=== PATIENT | male | born 1985 | race Caucasian/White ===

== ENCOUNTER 2016-04-25 18:05 | Emergency (ER) | payer MEDICAID ==
[2015-11-23 16:11] VITALS: BMI 21.8
[~2016-04-25 18:05] MED LIST: CARAFATE1 G/10 ML PO; FLAGYL500 MG PO; HYDROCODONE-APA1 TAB PO; LANTUS INSULIN10 ML SC; LANTUS SOL100 UNIT/1 SC; NOVOLIN N100 U/ML SC; NOVOLOG100 U/M1; NOVOLOG100 U/M1 SC; PROTONIX40 MG PO
[2016-04-25 18:46] LABS: BASOPHILS 0.2 % (0.0-2.0); EOSINOPHILS 1.5 % (0-7); HEMATOCRIT 48.3 % (42.0-54.0); HEMOGLOBIN 16.9 g/dL (13.5-17.5); IMMATURE GRANULOCYTES 0.3 % (0-5); LYMPHOCYTES 25.7 % (15-50); MCH 31.8 pg (26.0-34.0); MEAN PLATELET VOLUME 10.5 fL (7.4-10.4); NEUTROPHILS 67.3 % (40-80); PLATELET COUNT 210 10x3/uL (130-400); RBC 5.31 10x6/uL (4.20-6.10); RDW 12.9 % (11.5-14.5); WBC 13.7 10x3/uL (4.8-10.8)
[2016-04-25 19:12] LABS: APPEARANCE CLEAR (CLEAR); BILIRUBIN NEGATIVE (NEGATIVE); COLOR YELLOW (YELLOW); GLUCOSE 1000 mg/dL (NEGATIVE); KETONE NEGATIVE (NEGATIVE); LEUKOCYTE ESTERASE NEGATIVE (NEGATIVE); NITRITE NEGATIVE (NEGATIVE); PROTEIN NEGATIVE (NEGATIVE); UROBILINOGEN NORMAL (NORMAL)
[2016-04-25 19:20] LABS: ALBUMIN 3.8 g/dL (3.4-5.0); ALKALINE PHOSPHATASE 92 U/L (46-116); ALT (SGPT) 35 U/L (10-68); BILIRUBIN - TOTAL 1.41 mg/dL (0.2-1.3); CALC OSMOLALITY 290 mosm/kg (275-300); CALCIUM 9.9 mg/dL (8.5-10.1); CARBON DIOXIDE 27.7 mmol/L (21.0-32.0); CHLORIDE - SERUM 102 mmol/L (98-107); CREATININE - SERUM 0.9 mg/dL (0.6-1.3); POTASSIUM - SERUM 3.5 mmol/L (3.5-5.1); PROTEIN - SERUM 7.2 g/dL (6.4-8.2); SODIUM 140 mmol/L (136-145); UREA NITROGEN 16 mg/dL (7-18); eGFR NON AFRICAN AMERICAN > 90 mL/min (90-120)
[2016-04-25 19:21] LABS: GLUCOSE 290 mg/dL (74-106)
[2016-04-25 19:22] LABS: AMYLASE - SERUM 41 U/L (25-115); LIPASE 103 U/L (73-393)
== END 2016-04-25 22:25 | disposition home or self-care (01) ==
LOC: D.ER 18:05
PROVIDERS: Emergency Medicine
DX: R10.9 Unspecified abdominal pain (principal); E10.65 Type 1 diabetes mellitus with hyperglycemia; Z79.4 Long term (current) use of insulin; R11.10 Vomiting, unspecified; J45.909 Unspecified asthma, uncomplicated; K22.70 Barrett's esophagus without dysplasia; F17.200 Nicotine dependence, unspecified, uncomplicated

== ENCOUNTER 2016-06-14 16:18 | Emergency (ER) | payer MEDICAID ==
[2015-11-23 16:11] VITALS: BMI 21.8
[2016-06-14 16:54] LABS: BASOPHILS 0.2 % (0.0-2.0); EOSINOPHILS 1.8 % (0-7); HEMATOCRIT 51.2 % (42.0-54.0); IMMATURE GRANULOCYTES 0.4 % (0-5); MCH 31.8 pg (26.0-34.0); MCHC 35.2 g/dL (31.0-37.0); MCV 90.5 fL (80.0-100.0); MEAN PLATELET VOLUME 10.5 fL (7.4-10.4); MONOCYTES 5.9 % (2-11); NEUTROPHILS 82.7 % (40-80); PLATELET COUNT 178 10x3/uL (130-400); RBC 5.66 10x6/uL (4.20-6.10); RDW 12.4 % (11.5-14.5); WBC 10.9 10x3/uL (4.8-10.8)
[2016-06-14 17:42] LABS: ALKALINE PHOSPHATASE 74 U/L (46-116); ALT (SGPT) 34 U/L (10-68); AMYLASE - SERUM 40 U/L (25-115); BILIRUBIN - TOTAL 1.63 mg/dL (0.2-1.3); CALC OSMOLALITY 283 mosm/kg (275-300); CALCIUM 9.3 mg/dL (8.5-10.1); CARBON DIOXIDE 26.3 mmol/L (21.0-32.0); CHLORIDE - SERUM 100 mmol/L (98-107); CREATININE - SERUM 0.7 mg/dL (0.6-1.3); GLUCOSE 298 mg/dL (74-106); LIPASE 83 U/L (73-393); POTASSIUM - SERUM 4.4 mmol/L (3.5-5.1); PROTEIN - SERUM 7.2 g/dL (6.4-8.2); SODIUM 136 mmol/L (136-145); UREA NITROGEN 16 mg/dL (7-18); eGFR NON AFRICAN AMERICAN > 90 mL/min (90-120)
[2016-06-14 17:59] LABS: APPEARANCE CLEAR (CLEAR); BILIRUBIN NEGATIVE (NEGATIVE); COLOR YELLOW (YELLOW); GLUCOSE 1000 mg/dL (NEGATIVE); KETONE MODERATE mg/dL (NEGATIVE); LEUKOCYTE ESTERASE NEGATIVE (NEGATIVE); NITRITE NEGATIVE (NEGATIVE); PROTEIN NEGATIVE (NEGATIVE); SPECIFIC GRAVITY 1.015 (1.005-1.020); UROBILINOGEN NORMAL (NORMAL)
[2016-06-14 18:04] LABS: UDS - AMPHET NEGATIVE QUAL (NEGATIVE); UDS - BARB NEGATIVE QUAL (NEGATIVE); UDS - BENZO NEGATIVE QUAL (NEGATIVE); UDS - COCAINE NEGATIVE QUAL (NEGATIVE); UDS - METH NEGATIVE QUAL (NEGATIVE); UDS - OPIATE POSITIVE QUAL (NEGATIVE); UDS - PCP NEGATIVE QUAL (NEGATIVE); UDS - THC POSITIVE QUAL (NEGATIVE)
== END 2016-06-14 20:18 | disposition home or self-care (01) ==
LOC: D.ER 16:18
PROVIDERS: Family Medicine
DX: R10.9 Unspecified abdominal pain (principal); J45.909 Unspecified asthma, uncomplicated; K22.719 Barrett's esophagus with dysplasia, unspecified; E11.9 Type 2 diabetes mellitus without complications; Z79.4 Long term (current) use of insulin

== ENCOUNTER 2016-06-23 14:18 | Emergency (ER) | payer MEDICAID ==
[2015-11-23 16:11] VITALS: BMI 21.8
[2016-06-23 15:46] LABS: BASOPHILS 0.2 % (0.0-2.0); EOSINOPHILS 1.9 % (0-7); HEMATOCRIT 48.5 % (42.0-54.0); IMMATURE GRANULOCYTES 0.2 % (0-5); MCH 31.8 pg (26.0-34.0); MCHC 35.1 g/dL (31.0-37.0); MCV 90.7 fL (80.0-100.0); MEAN PLATELET VOLUME 10.2 fL (7.4-10.4); NEUTROPHILS 59.7 % (40-80); RBC 5.35 10x6/uL (4.20-6.10); RDW 12.5 % (11.5-14.5); WBC 11.1 10x3/uL (4.8-10.8)
[2016-06-23 15:49] LABS: PLATELET COUNT 221 10x3/uL (130-400)
[2016-06-23 16:01] LABS: ALBUMIN 3.6 g/dL (3.4-5.0); ALKALINE PHOSPHATASE 75 U/L (46-116); ALT (SGPT) 46 U/L (10-68); BILIRUBIN - TOTAL 1.33 mg/dL (0.2-1.3); CALC OSMOLALITY 288 mosm/kg (275-300); CARBON DIOXIDE 28.9 mmol/L (21.0-32.0); CHLORIDE - SERUM 103 mmol/L (98-107); CREATININE - SERUM 0.7 mg/dL (0.6-1.3); POTASSIUM - SERUM 3.8 mmol/L (3.5-5.1); PROTEIN - SERUM 6.6 g/dL (6.4-8.2); SODIUM 140 mmol/L (136-145); UREA NITROGEN 20 mg/dL (7-18); eGFR NON AFRICAN AMERICAN > 90 mL/min (90-120)
[2016-06-23 16:16] LABS: GLUCOSE 230 mg/dL (74-106)
== END 2016-06-23 18:53 | disposition left against medical advice (07) ==
LOC: D.ER 14:18
PROVIDERS: Emergency Medicine
DX: R51 Headache (principal)

== ENCOUNTER 2016-07-09 10:28 | Emergency (ER) | payer MEDICAID ==
[2015-11-23 16:11] VITALS: BMI 21.8
[2016-07-09 11:10] LABS: BASOPHILS 0.1 % (0.0-2.0); EOSINOPHILS 1.8 % (0-7); HEMATOCRIT 49.5 % (42.0-54.0); HEMOGLOBIN 17.5 g/dL (13.5-17.5); IMMATURE GRANULOCYTES 0.1 % (0-5); LYMPHOCYTES 32.5 % (15-50); MCH 31.9 pg (26.0-34.0); MCHC 35.4 g/dL (31.0-37.0); MCV 90.2 fL (80.0-100.0); MEAN PLATELET VOLUME 10.9 fL (7.4-10.4); MONOCYTES 7.4 % (2-11); NEUTROPHILS 58.1 % (40-80); PLATELET COUNT 202 10x3/uL (130-400); RBC 5.49 10x6/uL (4.20-6.10); RDW 12.5 % (11.5-14.5); WBC 7.7 10x3/uL (4.8-10.8)
[2016-07-09 11:36] LABS: ALBUMIN 4.2 g/dL (3.4-5.0); ALKALINE PHOSPHATASE 80 U/L (46-116); ALT (SGPT) 33 U/L (10-68); BILIRUBIN - TOTAL 2.03 mg/dL (0.2-1.3); CALC OSMOLALITY 285 mosm/kg (275-300); CALCIUM 9.2 mg/dL (8.5-10.1); CHLORIDE - SERUM 99 mmol/L (98-107); CREATINE KINASE 185 UL (21-232); CREATININE - SERUM 0.8 mg/dL (0.6-1.3); GLUCOSE 349 mg/dL (74-106); POTASSIUM - SERUM 4.1 mmol/L (3.5-5.1); PROTEIN - SERUM 6.9 g/dL (6.4-8.2); SODIUM 136 mmol/L (136-145); UREA NITROGEN 13 mg/dL (7-18); eGFR NON AFRICAN AMERICAN > 90 mL/min (90-120)
[2016-07-09 12:38] LABS: UDS - AMPHET NEGATIVE QUAL (NEGATIVE); UDS - BARB NEGATIVE QUAL (NEGATIVE); UDS - BENZO NEGATIVE QUAL (NEGATIVE); UDS - COCAINE NEGATIVE QUAL (NEGATIVE); UDS - METH NEGATIVE QUAL (NEGATIVE); UDS - OPIATE NEGATIVE QUAL (NEGATIVE); UDS - PCP NEGATIVE QUAL (NEGATIVE); UDS - THC NEGATIVE QUAL (NEGATIVE)
[2016-07-09 12:46] LABS: APPEARANCE CLEAR (CLEAR); COLOR YELLOW (YELLOW); SPECIFIC GRAVITY 1.015 (1.005-1.020)
[2016-07-09 12:52] LABS: BILIRUBIN NEGATIVE (NEGATIVE); GLUCOSE 1000 mg/dL (NEGATIVE); KETONE LARGE mg/dL (NEGATIVE); LEUKOCYTE ESTERASE TRACE (NEGATIVE); NITRITE NEGATIVE (NEGATIVE); PROTEIN NEGATIVE (NEGATIVE); UROBILINOGEN NORMAL (NORMAL)
[2016-07-09 12:53] LABS: WHITE CELLS - URINE 0-5 /hpf (0-5)
[2016-07-09 12:55] LABS: RED CELLS - URINE OCC /hpf (0-5)
[2016-07-09 12:56] LABS: BACTERIA FEW /hpf (NONE SEEN); EPITHELIAL CELLS RARE /hpf (0-5)
== END 2016-07-09 12:47 | disposition home or self-care (01) ==
LOC: D.ER 10:28
PROVIDERS: Emergency Medicine
DX: R06.02 Shortness of breath (principal); J45.909 Unspecified asthma, uncomplicated; E10.9 Type 1 diabetes mellitus without complications; Z79.4 Long term (current) use of insulin; F17.200 Nicotine dependence, unspecified, uncomplicated

== ENCOUNTER 2016-07-16 08:29 | Emergency (ER) | payer MEDICAID ==
[2015-11-23 16:11] VITALS: BMI 21.8
[2016-07-16 09:24] LABS: BASOPHILS 0.2 % (0.0-2.0); HEMATOCRIT 33.4 % (42.0-54.0); HEMOGLOBIN 10.6 g/dL (13.5-17.5); LYMPHOCYTES 31.2 % (15-50); MCHC 31.7 g/dL (31.0-37.0); MCV 75.7 fL (80.0-100.0); MEAN PLATELET VOLUME 12.1 fL (7.4-10.4); MONOCYTES 7.1 % (2-11); NEUTROPHILS 60.5 % (40-80); PLATELET COUNT 277 10x3/uL (130-400); RBC 4.41 10x6/uL (4.20-6.10); RDW 16.1 % (11.5-14.5); WBC 5.8 10x3/uL (4.8-10.8)
[2016-07-16 09:32] LABS: AMYLASE - SERUM 65 U/L (25-115); LIPASE 139 U/L (73-393)
[2016-07-16 09:58] LABS: ALBUMIN 4.2 g/dL (3.4-5.0); ALKALINE PHOSPHATASE 75 U/L (46-116); ALT (SGPT) 17 U/L (10-68); BILIRUBIN - TOTAL 0.61 mg/dL (0.2-1.3); CALCIUM 9.2 mg/dL (8.5-10.1); CHLORIDE - SERUM 104 mmol/L (98-107); CREATININE - SERUM 0.9 mg/dL (0.6-1.3); POTASSIUM - SERUM 4.3 mmol/L (3.5-5.1); SODIUM 139 mmol/L (136-145); UREA NITROGEN 13 mg/dL (7-18); eGFR NON AFRICAN AMERICAN > 90 mL/min (90-120)
[2016-07-16 10:02] LABS: CREATINE KINASE 62 UL (21-232); MAGNESIUM - SERUM 2.1 mg/dL (1.8-2.4)
[2016-07-16 10:03] LABS: CALC OSMOLALITY 276 mosm/kg (275-300); GLUCOSE 86 mg/dL (74-106); TROPONIN-I < 0.017 ng/mL (0.000-0.060)
== END 2016-07-16 12:14 | disposition home or self-care (01) ==
LOC: D.ER 08:29
PROVIDERS: Emergency Medicine
DX: K20.9 Esophagitis, unspecified (principal); D64.9 Anemia, unspecified; J45.909 Unspecified asthma, uncomplicated; E10.9 Type 1 diabetes mellitus without complications; Z79.4 Long term (current) use of insulin; F17.200 Nicotine dependence, unspecified, uncomplicated

== ENCOUNTER 2016-07-31 23:11 | Emergency (ER) | payer MEDICAID ==
[2015-11-23 16:11] VITALS: BMI 21.8
[2016-07-31 23:35] LABS: APPEARANCE CLEAR (CLEAR); BILIRUBIN NEGATIVE (NEGATIVE); COLOR YELLOW (YELLOW); GLUCOSE 500 mg/dL (NEGATIVE); KETONE SMALL mg/dL (NEGATIVE); LEUKOCYTE ESTERASE NEGATIVE (NEGATIVE); NITRITE NEGATIVE (NEGATIVE); PROTEIN NEGATIVE (NEGATIVE); SPECIFIC GRAVITY 1.015 (1.005-1.020); UROBILINOGEN NORMAL (NORMAL)
[2016-07-31 23:52] LABS: BASOPHILS 0.2 % (0-2); EOSINOPHILS 1.7 % (0-7); HEMATOCRIT 45.9 % (42.0-54.0); HEMOGLOBIN 16.3 g/dL (13.5-17.5); IMMATURE GRANULOCYTES 0.5 % (0-5); LYMPHOCYTES 42.5 % (15-50); MCH 31.8 pg (26.0-34.0); MCHC 35.5 g/dL (31.0-37.0); MCV 89.6 fL (80.0-100.0); MEAN PLATELET VOLUME 10.3 fL (7.4-10.4); MONOCYTES 7.8 % (2-11); NEUTROPHILS 47.3 % (40-80); PLATELET COUNT 225 10x3/uL (130-400); RBC 5.12 10x6/uL (4.20-6.10); RDW 12.5 % (11.5-14.5); WBC 8.6 10x3/uL (4.8-10.8)
[2016-08-01 00:06] LABS: ALKALINE PHOSPHATASE 74 U/L (46-116); ALT (SGPT) 33 U/L (10-68); AMYLASE - SERUM 32 U/L (25-115); BILIRUBIN - TOTAL 2.12 mg/dL (0.2-1.3); CALC OSMOLALITY 283 mosm/kg (275-300); CALCIUM 9.5 mg/dL (8.5-10.1); CARBON DIOXIDE 28.7 mmol/L (21.0-32.0); CHLORIDE - SERUM 96 mmol/L (98-107); GLUCOSE 315 mg/dL (74-106); LIPASE 51 U/L (73-393); POTASSIUM - SERUM 3.8 mmol/L (3.5-5.1); PROTEIN - SERUM 7.2 g/dL (6.4-8.2); SODIUM 135 mmol/L (136-145); UREA NITROGEN 18 mg/dL (7-18); eGFR NON AFRICAN AMERICAN > 90 mL/min (90-120)
== END 2016-08-01 01:20 | disposition home or self-care (01) ==
LOC: D.ER 23:11
PROVIDERS: Family Medicine
DX: R11.10 Vomiting, unspecified (principal); J45.909 Unspecified asthma, uncomplicated; E10.9 Type 1 diabetes mellitus without complications; Z79.4 Long term (current) use of insulin

== ENCOUNTER 2016-08-04 00:42 | Emergency (ER) | payer MEDICAID ==
[2015-11-23 16:11] VITALS: BMI 21.8
[2016-08-04 01:33] LABS: HEMATOCRIT 50.8 % (42.0-54.0); HEMOGLOBIN 17.4 g/dL (13.5-17.5); LYMPHOCYTES 27.3 % (15-50); MCH 31.2 pg (26.0-34.0); MCHC 34.3 g/dL (31.0-37.0); MEAN PLATELET VOLUME 10.1 fL (7.4-10.4); NEUTROPHILS 66.9 % (40-80); PLATELET COUNT 193 10x3/uL (130-400); RBC 5.58 10x6/uL (4.20-6.10); RDW 12.6 % (11.5-14.5); WBC 8.2 10x3/uL (4.8-10.8)
[2016-08-04 01:38] LABS: KETONE - SERUM SMALL mg/dL (NEGATIVE)
[2016-08-04 01:40] LABS: APPEARANCE CLEAR (CLEAR); BILIRUBIN NEGATIVE (NEGATIVE); COLOR STRAW (YELLOW); GLUCOSE 1000 mg/dL (NEGATIVE); KETONE LARGE mg/dL (NEGATIVE); LEUKOCYTE ESTERASE NEGATIVE (NEGATIVE); NITRITE NEGATIVE (NEGATIVE); PROTEIN NEGATIVE (NEGATIVE); SPECIFIC GRAVITY 1.015 (1.005-1.020); UROBILINOGEN NORMAL (NORMAL)
[2016-08-04 01:46] LABS: ALBUMIN 4.3 g/dL (3.4-5.0); ALKALINE PHOSPHATASE 167 U/L (46-116); ALT (SGPT) 32 U/L (10-68); AMYLASE - SERUM 26 U/L (25-115); BILIRUBIN - TOTAL 2.43 mg/dL (0.2-1.3); CALCIUM 10.3 mg/dL (8.5-10.1); CARBON DIOXIDE 17.2 mmol/L (21.0-32.0); CHLORIDE - SERUM 89 mmol/L (98-107); CREATININE - SERUM 1.3 mg/dL (0.6-1.3); LIPASE 73 U/L (73-393); POTASSIUM - SERUM 5.2 mmol/L (3.5-5.1); PROTEIN - SERUM 7.6 g/dL (6.4-8.2); SODIUM 127 mmol/L (136-145); UREA NITROGEN 24 mg/dL (7-18); eGFR NON AFRICAN AMERICAN 70 mL/min (90-120)
[2016-08-04 01:57] LABS: CALC OSMOLALITY 307 mosm/kg (275-300); GLUCOSE 986 mg/dL (74-106)
== END 2016-08-04 07:58 | disposition home or self-care (01) ==
LOC: D.ER 00:42
PROVIDERS: Family Medicine
DX: E11.65 Type 2 diabetes mellitus with hyperglycemia (principal); Z79.4 Long term (current) use of insulin; R11.10 Vomiting, unspecified; J45.909 Unspecified asthma, uncomplicated

== ENCOUNTER 2016-10-26 15:37 | Emergency (ER) | payer MEDICAID ==
[2015-11-23 16:11] VITALS: BMI 21.8
== END 2016-10-26 17:15 | disposition home or self-care (01) ==
LOC: D.ER 15:37
DX: M79.1 Myalgia (principal); J45.909 Unspecified asthma, uncomplicated; E10.9 Type 1 diabetes mellitus without complications; Z79.4 Long term (current) use of insulin

== ENCOUNTER 2018-07-31 04:56 | Inpatient (IN) | payer MEDICAID, BC ==
[2018-07-31] VITALS (7 sets, daily range): BP systolic 99–125; BP diastolic 44–74; BMI 22.5
[~2018-07-31] VITALS: Ht 188 cm; Wt 76.7 kg
[2018-07-31] MEDS ORDERED: CELEBREX 100 M100 MG PO (05:04)
[2018-07-31 05:46] LABS: BASOPHILS 0.3 % (0-2); EOSINOPHILS 3.6 % (0-7); HEMATOCRIT 46.9 % (42.0-54.0); HEMOGLOBIN 16.9 g/dL (13.5-17.5); IMMATURE GRANULOCYTES 0.5 % (0-5); LYMPHOCYTES 39.4 % (15-50); MCH 31.7 pg (26.0-34.0); MEAN PLATELET VOLUME 10.4 fL (7.4-10.4); MONOCYTES 6.6 % (2-11); NEUTROPHILS 49.6 % (40-80); RBC 5.33 10x6/uL (4.20-6.10); RDW 12.6 % (11.5-14.5); WBC 9.6 10x3/uL (4.8-10.8)
[2018-07-31 05:48] LABS: ALBUMIN 3.8 g/dL (3.4-5.0); ALKALINE PHOSPHATASE 104 U/L (46-116); ALT (SGPT) 33 U/L (10-68); CALC OSMOLALITY 285 mosm/kg (275-300); CALCIUM 9.9 mg/dL (8.5-10.1); CARBON DIOXIDE 25.2 mmol/L (21.0-32.0); CHLORIDE - SERUM 100 mmol/L (98-107); CREATININE - SERUM 0.8 mg/dL (0.6-1.3); LIPASE 84 U/L (73-393); PROTEIN - SERUM 7.8 g/dL (6.4-8.2); SODIUM 137 mmol/L (136-145); UREA NITROGEN 16 mg/dL (7-18); eGFR NON AFRICAN AMERICAN > 90 mL/min (90-120)
[2018-07-31 05:50] LABS: PLATELET COUNT 247 10x3/uL (130-400)
[2018-07-31 05:51] LABS: GLUCOSE 290 mg/dL (74-106)
--- NOTE | 2018-07-31 06:18 | NUR ---
PT URINE SPECIMEN SENT TO LAB. PT DENIES RELIEF FROM TORADOL. EDP NOTIFIED.
[2018-07-31 06:39] LABS: APPEARANCE CLEAR (CLEAR); BILIRUBIN NEGATIVE (NEGATIVE); COLOR YELLOW (YELLOW); GLUCOSE 500 mg/dL (NEGATIVE); KETONE NEGATIVE (NEGATIVE); NITRITE NEGATIVE (NEGATIVE); PROTEIN NEGATIVE (NEGATIVE); SPECIFIC GRAVITY 1.015 (1.005-1.020); UROBILINOGEN NORMAL (NORMAL)
--- NOTE | 2018-07-31 06:40 | NUR ---
PT RESTING ON BED. BEDSIDE COMMODE AT SIDE. PT FAMILY IN WAITING ROOM.
--- NOTE | 2018-07-31 07:10 | NUR ---
STOOL SAMPLE COLLECTED AND SENT TO LAB.
--- NOTE | 2018-07-31 11:41 | NUR ---
ARRIVE TO ROOM VIA WHEELCHAIR ACCOMPANIED BY ER STAFF. AMBULATES FROM WHEELCHAIR TO BED WITHOUT DIFFICULTY. LEVAQUIN ANTIBIOTIC INFUSING ORDERED. UP AD ROGE. REFUSE SCDs. CONTINUE ADMISSION PROCESS. CONTINUE PLAN OF CARE AND SAFETY PRECAUTIONS.
--- NOTE | 2018-07-31 11:54 | MORECARE ---
CASE MANAGEMENT DISCHARGE SUMMARY PATIENT: GAVIOTA COFFEY UNIT: [id number] ADM DATE: 07/31/18 AGE: 32 : 89 SEX: M ROOM/BED: D.1213 AUTHOR: ABDULLAHI POWELL PHYSICIAN: REFERRING PHYSICIAN: STEPHANE LOZANO MD DATE OF SERVICE: 07/31/18 Discharge Plan Patient Name: GAVIOTA COFFEY Facility: [facility]:[place] : 1985 Planned Disposition: Home Anticipated Discharge Date: 08/02/18 Discharge Date: Expected LOS: 2 Initial Reviewer: [email or web address] Initial Review Date: 07/31/2018 Generated: 07/31/18 12:54 pm DCP- Discharge Planning Updated by [email or web address]: Chanda Rahman on 07/31/18 10:[address] Patient Name: GAVIOTA COFFEY Admission Status: ER Accout number: [id number] Admission Date: 07-31-2018 : 1985 Admission Diagnosis: Attending: STEPHANE SIMON Current LOS: 1 Anticipated DC Date: 08-02-2018 Planned Disposition: Home Primary Insurance: MEDICAID [place] Discharge Planning Comments: CM met with patient to complete initial dc planning assessment. CM educated patient on the CM role and verbal consent given by patient to complete assessment. CM verified patient's address, phone number, and emergency contact phone numbers. Patient lives at home with his mother and his son. He reports he recently moved here and moved in with his mother. At discharge patient plans to return to his mothers home and feels this is a safe discharge. CM discussed availability of home health, rehab services, and medical equipment. Patient denied known discharge needs at this time. Patient reports his mother will transport him home at time of discharge. CM will continue to follow and will assist as needed with dc plans/needs. Airdrop Systems Technician: Chanda Rahman RN, [facility] DCPIA - Discharge Planning Initial Assessment Updated by [email or web address]: Chanda Rahman on 07/31/18 11:34 am * Is the patient Alert and Oriented? Yes * PCP Dr. Lazo - hasn't had first appointment yet nor appointment at this time. * Pharmacy [facility] in [place] * Preadmission Environment Home with Family * ADLs Independent * Equipment Glucometer * List name and contact numbers for known caregivers / representatives who currently or will assist patient after discharge: Colby Pierre - mother/transportation at dc - [phone] [place] - [phone] * Verbal permission to speak to the caregivers and representatives has been obtained from the patient. Yes * Community resources currently utilized None * Additional services required to return to the preadmission environment? No * Can the patient safely return to the preadmission environment? Yes * Has this patient been hospitalized within the prior 30 days at any hospital? No Patient Name: GAVIOTA COFFEY Page 77777 at 1154 All edits/amendments must be made on the electronic document DICTATION DATE: 07/31/181152 SCOUT: INDIA 07/31/181152 RPT#: [id number] [place] DATE: STATUS: ADM IN [facility] [address] [place] [address] END OF REPORT
[2018-07-31] MEDS ORDERED: BASAGLAR K100 UNIT/1 SC (12:13)
--- NOTE | 2018-07-31 20:00 | NUR ---
LYING IN BED WITH S.O. ALERT AND ORIENTED X4. RESP EVEN AND NONLABORED. BBS CTA. ABD FLAT, TENDER. REPORTS ABD CRAMPING AND BILAT FLANK PAIN 7. DENIES NAUSEA. BS PRESENT X4 QUADS. AMBULATORY. SALINE LOCK NOTED TO LT FOREARM. SR ELEVATED X2. CL IN REACH.
--- NOTE | 2018-07-31 21:00 | NUR ---
MEDICATED WITH DILAUDID 0.5MG AND ZOFRAN ORDERED. C/O ABD CRAMPING AND BILAT FLANK PAIN. S.O AT BEDSIDE. SR ELEVATED X2. CL IN REACH.
--- NOTE | 2018-07-31 23:35 | NUR ---
REQUESTING DILAUDID FOR PAIN. MEDICATED WITH DILAUDID 1MG FOR C/O ABD CRAMPING AND BILAT FLANK PAIN. SR ELEVATED X2. CL IN REACH.
[2018-08-01 01:43] VITALS: BP 113/65
--- NOTE | 2018-08-01 04:10 | NUR ---
HAS RESTED WELL SINCE MIDNIGHT. RESP EVEN AND NONLABORED. SR ELEVATED X2. CL IN REACH.
[2018-08-01 05:15] VITALS: BP 108/66
[2018-08-01 06:57] LABS: BASOPHILS 0.2 % (0-2); EOSINOPHILS 3.8 % (0-7); HEMATOCRIT 42.5 % (42.0-54.0); HEMOGLOBIN 14.7 g/dL (13.5-17.5); IMMATURE GRANULOCYTES 0.2 % (0-5); LYMPHOCYTES 36.3 % (15-50); MCH 30.9 pg (26.0-34.0); MCHC 34.6 g/dL (31.0-37.0); MCV 89.5 fL (80.0-100.0); MEAN PLATELET VOLUME 10.1 fL (7.4-10.4); MONOCYTES 6.5 % (2-11); PLATELET COUNT 209 10x3/uL (130-400); RBC 4.75 10x6/uL (4.20-6.10); RDW 12.6 % (11.5-14.5); WBC 8.3 10x3/uL (4.8-10.8)
[2018-08-01 07:40] LABS: CALC OSMOLALITY 289 mosm/kg (275-300); CALCIUM 8.8 mg/dL (8.5-10.1); CARBON DIOXIDE 28.2 mmol/L (21.0-32.0); CHLORIDE - SERUM 105 mmol/L (98-107); CREATININE - SERUM 0.8 mg/dL (0.6-1.3); GLUCOSE 256 mg/dL (74-106); SODIUM 139 mmol/L (136-145); UREA NITROGEN 20 mg/dL (7-18); eGFR NON AFRICAN AMERICAN > 90 mL/min (90-120)
[2018-08-01 08:31] VITALS: BP 121/77
[2018-08-01 10:07] VITALS: Ht 188 cm; Wt 76.7 kg
[2018-08-01 12:30] VITALS: BP 117/72
--- NOTE | 2018-08-01 13:32 | NUR ---
IV POLE BEEPING. ENTER ROOM, PATIENT MISSING. ADMINISTERED PAIN MEDICATION 1230. IV ANTIBIOTIC INFUSING UNHOOKED BY PATIENT LEFT ON BED. LABORER TIN CAN REPORTS SEEING PATIENT IN GIFT SHOP. CALL TO GIFT SHOP, SHIFT SHOP ATTENDANT REPORTS PATIENT SEEN WALKING OUT FRONT DOOR. PAGE MISTY HUERTA TO NOTIFY.
[2018-08-01 16:15] VITALS: BP 122/73
[2018-08-01 20:00] VITALS: BP 114/65
--- NOTE | 2018-08-01 20:35 | NUR ---
HAS BEEN AMBULATING IN HOSPITAL WITH GIRLFRIEND. RETURNS TO ROOM AND ASKS FOR PAIN AND NAUSEA MED. MEDICATED WITH DILAUDID AND ZOFRAN ORDERED FOR ABD/BACK PAIN AND NAUSEA. RESP EVEN AND NONLABORED. BBS CTA. ABD SOFT, TENDER. BS PRESENT X4 QUADS. SALINE LOCK NOTED TO LT FOREARM IS PATENT. SR ELEVATED X2. CL IN REACH.
[2018-08-02] VITALS: BP 109/60
--- NOTE | 2018-08-02 00:05 | NUR ---
AMBULATING AROUND HOSPITAL WITH GIRLFRIEND. NO DISTRESS.
--- NOTE | 2018-08-02 03:00 | NUR ---
MEDICATED WITH DILAUDID AND ZOFRAN FOR C/O PAIN AND NAUSEA. CL IN REACH.
--- NOTE | 2018-08-02 04:14 | NUR ---
RESTING WITH EYES CLOSED. NO DISTRESS. RESP EVEN AND NONLABORED. CL IN REACH.
[2018-08-02 04:15] VITALS: BP 102/59
[2018-08-02 07:48] LABS: BASOPHILS 0.1 % (0-2); EOSINOPHILS 4.4 % (0-7); HEMATOCRIT 43.7 % (42.0-54.0); HEMOGLOBIN 15.1 g/dL (13.5-17.5); IMMATURE GRANULOCYTES 0.2 % (0-5); LYMPHOCYTES 35.6 % (15-50); MCH 31.1 pg (26.0-34.0); MCHC 34.6 g/dL (31.0-37.0); MCV 89.9 fL (80.0-100.0); MEAN PLATELET VOLUME 10.2 fL (7.4-10.4); MONOCYTES 6.2 % (2-11); NEUTROPHILS 53.5 % (40-80); PLATELET COUNT 206 10x3/uL (130-400); RBC 4.86 10x6/uL (4.20-6.10); RDW 12.8 % (11.5-14.5); WBC 9.5 10x3/uL (4.8-10.8)
[2018-08-02 08:15] LABS: ALBUMIN 3.3 g/dL (3.4-5.0); ALKALINE PHOSPHATASE 66 U/L (46-116); ALT (SGPT) 31 U/L (10-68); BILIRUBIN - TOTAL 1.02 mg/dL (0.2-1.3); CALC OSMOLALITY 287 mosm/kg (275-300); CALCIUM 9.1 mg/dL (8.5-10.1); CARBON DIOXIDE 27.9 mmol/L (21.0-32.0); CHLORIDE - SERUM 101 mmol/L (98-107); CREATININE - SERUM 0.9 mg/dL (0.6-1.3); MAGNESIUM - SERUM 1.8 mg/dL (1.8-2.4); POTASSIUM - SERUM 4.6 mmol/L (3.5-5.1); PROTEIN - SERUM 6.6 g/dL (6.4-8.2); SODIUM 136 mmol/L (136-145); UREA NITROGEN 23 mg/dL (7-18); eGFR NON AFRICAN AMERICAN > 90 mL/min (90-120)
[2018-08-02 08:16] LABS: GLUCOSE 315 mg/dL (74-106)
--- NOTE | 2018-08-02 08:47 | NUR ---
AM MEDS GIVEN AT THIS TIME. PT ASKING FOR PAIN AND NAUSEA MEDICATION, INFORMED PT THAT HE CANNOT HAVE PAIN MEDICATION UNTIL 9. PT ALSO REQUESTED A CUP OF COFFEE WITH 2 CREAMERS AND 2 SWEET AND LOW. WILL PROVIDE PT WITH COFFEE. PT DENIES ANY OTHER NEEDS AT THIS TIME. CALL LIGHT IN REACH, NAD NOTED, WILL CONTINUE TO MONITOR.
--- NOTE | 2018-08-02 09:14 | NUR ---
GAVE 0.5MG OF DILAUDID FOR PAIN LEVEL OF 7/10, ALSO GAVE 4MG OF ZOFRAN PER PT REQUEST. PT DENEIS ANY OTHER NEEDS AT THIS TIME. CALL LIGHT IN REACH, NAD NOTED, WILL CONTINUE TO MONITOR.
[2018-08-02 09:45] VITALS: BP 116/69
--- NOTE | 2018-08-02 11:05 | NUR ---
PT STEPPED OFF THE UNIT, DID NOT NOTIFY NURSE WHERE HE WAS GOING.
--- NOTE | 2018-08-02 11:53 | NUR ---
BLOOD SUGAR OF 215, 8UNITS OF HUMULIN PER S/S. PT RESTING COMFORTABLY IN BED, DENIES ANY NEEDS AT THIS TIME. CALL LIGHT IN REACH, NAD NOTED, WILL CONTINUE TO MONITOR.
[2018-08-02 13:31] VITALS: BP 114/69
[2018-08-02] MEDS ORDERED: LEVAQUIN750 MG PO (16:30)
[2018-08-02] MEDS ORDERED: FLAGYL500 MG PO (16:31)
--- NOTE | 2018-08-02 17:33 | NUR ---
PROVIDED VERBAL AND WRITTEN DISCHARGE TEACHING TO PT, WHO VERBALIZED UNDERSTANDING REGARDING TEACHING. D/C LT FA IV WITH TIP INTACT. PROVIDED PT WITH WORK EXCUSE.
--- NOTE | 2018-08-02 17:53 | NUR ---
PT REFUSED TO BE WHEELED OUT. LEFT UNIT WITH ALL BELONGINGS VIA ABULATORY, ACCOMPANIED BY FAMILY, NAD NOTED.
--- NOTE | 2018-08-03 13:53 | MORECARE ---
CASE MANAGEMENT DISCHARGE SUMMARY PATIENT: GAVIOTA COFFEY UNIT: [id number] ADM DATE: 07/31/18 AGE: 32 : 89 SEX: M ROOM/BED: D.1213 AUTHOR: ABDULLAHI POWELL PHYSICIAN: REFERRING PHYSICIAN: STEPHANE LOZANO MD DATE OF SERVICE: 08/03/18 Discharge Plan Patient Name: GAVIOTA COFFEY Facility: [facility]:[place] : 1985 Planned Disposition: Home Anticipated Discharge Date: 08/02/18 Discharge Date: 08/02/2018 Expected LOS: 2 Initial Reviewer: [email or web address] Initial Review Date: 07/31/2018 Generated: 08/03/18 2:53 pm DCP- Discharge Planning Updated by [email or web address]: Chanda Rahman on 07/31/18 10:[address] Patient Name: GAVIOTA COFFEY Admission Status: ER Accout number: [id number] Admission Date: 07-31-2018 : 1985 Admission Diagnosis: Attending: STEPHANE SIMON Current LOS: 1 Anticipated DC Date: 08-02-2018 Planned Disposition: Home Primary Insurance: MEDICAID [place] Discharge Planning Comments: CM met with patient to complete initial dc planning assessment. CM educated patient on the CM role and verbal consent given by patient to complete assessment. CM verified patient's address, phone number, and emergency contact phone numbers. Patient lives at home with his mother and his son. He reports he recently moved here and moved in with his mother. At discharge patient plans to return to his mothers home and feels this is a safe discharge. CM discussed availability of home health, rehab services, and medical equipment. Patient denied known discharge needs at this time. Patient reports his mother will transport him home at time of discharge. CM will continue to follow and will assist as needed with dc plans/needs. Moisture Meter Reader: Chanda Rahman RN, [facility] DCPIA - Discharge Planning Initial Assessment Updated by [email or web address]: Chanda Rahman on 07/31/18 11:34 am * Is the patient Alert and Oriented? Yes * PCP Dr. Lazo - hasn't had first appointment yet nor appointment at this time. * Pharmacy [facility] in [place] * Preadmission Environment Home with Family * ADLs Independent * Equipment Glucometer * List name and contact numbers for known caregivers / representatives who currently or will assist patient after discharge: Colby Pierre - mother/transportation at dc - [phone] [place] - [phone] * Verbal permission to speak to the caregivers and representatives has been obtained from the patient. Yes * Community resources currently utilized None * Additional services required to return to the preadmission environment? No * Can the patient safely return to the preadmission environment? Yes * Has this patient been hospitalized within the prior 30 days at any hospital? No Last DP export: 07/31/18 10:54 a Patient Name: GAVIOTA COFFEY Page 26206 at 1353 All edits/amendments must be made on the electronic document DICTATION DATE: 08/03/18 1353 CNA GNA: INDIA 08/03/18 1353 RPT#: [id number] DE DATE:08/02/18 STATUS: DIS IN [facility] [address] [place] [address] END OF REPORT
== END 2018-08-02 17:53 | disposition home or self-care (01) | DRG 392 ==
LOC: D.ER 04:56 → D.M3 10:07 → D.EDHOLD 10:07 → D.M3 11:22
PROVIDERS: Family Medicine; ADMIT Family Medicine Adult Medicine; ATTEND Family Medicine Adult Medicine
DX: K52.9 Noninfective gastroenteritis and colitis, unspecified (principal); E11.65 Type 2 diabetes mellitus with hyperglycemia; E11.43 Type 2 diabetes mellitus with diabetic autonomic (poly)neuropathy; K31.84 Gastroparesis

== ENCOUNTER 2019-04-28 13:56 | Inpatient (IN) | payer MEDICAID ==
[~2019-04-28] VITALS: Ht 188 cm; Wt 78.5 kg
[2019-04-28] VITALS (8 sets, daily range): BP systolic 84–113; BP diastolic 43–64; BMI 22.2
[~2019-04-28 13:56] MED LIST changes: +BASAGLAR K100 UNIT/1 SC; +CELEBREX 100 M100 MG PO; +LEVAQUIN750 MG PO
[2019-04-28 14:39] LABS: BASOPHILS 0.1 % (0-2); EOSINOPHILS 0.2 % (0-7); HEMOGLOBIN 16.8 g/dL (13.5-17.5); IMMATURE GRANULOCYTES 0.2 % (0-5); LYMPHOCYTES 15.6 % (15-50); MCH 30.8 pg (26.0-34.0); MCHC 35.7 g/dL (31.0-37.0); MCV 86.2 fL (80.0-100.0); MEAN PLATELET VOLUME 10.7 fL (7.4-10.4); MONOCYTES 4.8 % (2-11); NEUTROPHILS 79.1 % (40-80); PLATELET COUNT 226 10x3/uL (130-400); RBC 5.45 10x6/uL (4.20-6.10); RDW 12.4 % (11.5-14.5); WBC 12.8 10x3/uL (4.8-10.8)
[2019-04-28 15:00] LABS: KETONE - SERUM SMALL mg/dL (NEGATIVE)
[2019-04-28 15:01] LABS: ALKALINE PHOSPHATASE 63 U/L (30-120); ALT (SGPT) 48 U/L (10-68); CALC OSMOLALITY 288 mosm/kg (275-300); CALCIUM 9.7 mg/dL (8.5-10.1); CARBON DIOXIDE 25.3 mmol/L (21.0-32.0); CHLORIDE - SERUM 97 mmol/L (98-107); CREATININE - SERUM 0.9 mg/dL (0.6-1.3); POTASSIUM - SERUM 4.3 mmol/L (3.5-5.1); SODIUM 135 mmol/L (136-145); UREA NITROGEN 18 mg/dL (7-18); eGFR NON AFRICAN AMERICAN > 90 mL/min (90-120)
[2019-04-28 15:02] LABS: GLUCOSE 399 mg/dL (74-106)
--- NOTE | 2019-04-28 15:46 | NUR ---
PT IS RESTING COMFORTABLEY AND REPORTS A DECREASE IN PAIN; HE IS CALM AND NO LONGER MOANING OR TENSE.
[2019-04-28 16:23] LABS: APPEARANCE CLEAR (CLEAR); BILIRUBIN NEGATIVE (NEGATIVE); COLOR YELLOW (YELLOW); GLUCOSE 250 mg/dL (NEGATIVE); KETONE MODERATE mg/dL (NEGATIVE); NITRITE NEGATIVE (NEGATIVE); PROTEIN NEGATIVE (NEGATIVE); UROBILINOGEN NORMAL (NORMAL)
[2019-04-28 16:29] LABS: UDS - AMPHET NEGATIVE QUAL (NEGATIVE); UDS - BARB NEGATIVE QUAL (NEGATIVE); UDS - BENZO NEGATIVE QUAL (NEGATIVE); UDS - COCAINE NEGATIVE QUAL (NEGATIVE); UDS - OPIATE POSITIVE QUAL (NEGATIVE); UDS - PCP NEGATIVE QUAL (NEGATIVE); UDS - THC NEGATIVE QUAL (NEGATIVE)
--- NOTE | 2019-04-28 17:44 | NUR ---
POC GLUCOSE 249
--- NOTE | 2019-04-28 18:55 | NUR ---
PT RESTING ON BED. NO S/S OF ACUTE DISTRESS NOTED.
[2019-04-28 19:30] LABS: CALC OSMOLALITY 286 mosm/kg (275-300); CALCIUM 7.6 mg/dL (8.5-10.1); CARBON DIOXIDE 26.4 mmol/L (21.0-32.0); CHLORIDE - SERUM 107 mmol/L (98-107); CREATININE - SERUM 0.7 mg/dL (0.6-1.3); GLUCOSE 174 mg/dL (74-106); POTASSIUM - SERUM 3.6 mmol/L (3.5-5.1); SODIUM 141 mmol/L (136-145); UREA NITROGEN 18 mg/dL (7-18); eGFR NON AFRICAN AMERICAN > 90 mL/min (90-120)
[2019-04-28 19:46] LABS: AMYLASE - SERUM 27 U/L (25-115); CKMB 1.2 U/L (0.0-3.6); CREATINE KINASE 111 UL (21-232); MAGNESIUM - SERUM 1.7 mg/dL (1.8-2.4); THYROID STIMULATING HORMONE 6.33 uIU/mL (0.36-3.74); TROPONIN-I 0.026 ng/mL (0.000-0.060)
[2019-04-28 19:48] LABS: LIPASE 35 U/L (73-393)
--- NOTE | 2019-04-28 19:55 | NUR ---
FSBS 104, INSULIN CONTINUES TO INFUSE AT 5 UNITS/HOUR PER PROTOCOL
--- NOTE | 2019-04-28 20:35 | NUR ---
FSBS 39, EDP GAGE NOTIFIED. VERBAL ORDER FOR AMP D50 GIVEN, ADMINISTERED PER VERBAL ORDER.
--- NOTE | 2019-04-28 21:00 | NUR ---
FSBS 121. EDP GAGE NOTIFIED.
--- NOTE | 2019-04-28 21:35 | NUR ---
FSBS 88 ON ARRIVAL, WILL MONITOR CLOSELY FOR CHANGES.
--- NOTE | 2019-04-28 21:45 | NUR ---
PT REC'D TO ROOM CVO4, CURLED UP ON STRETCHER, PT MOVED SELF TO BED, COMPLAINS OF CHEST PAIN THAT STARTS UNDER ARM AND RUNS ACROSS CHEST AND ABDOMEN, RATING "5-6" ON 0-10 PAIN SCALE, LEFT A/C PIV SALINE LOCKED, RIGHT FOREARM PIV WITH NS @ 125CC/HR, PT CALM AND COOPERATIVE, ADMIT HISTORY AND ASSESSMENT COMPLETED.
[2019-04-28] MEDS ORDERED: HUMALOG 30100 UNITS/ SC (21:47)
--- NOTE | 2019-04-28 22:45 | NUR ---
BP TRENDING 90'S, PT COMPLAINS THAT ABDOMINAL PAIN IS "GETTING BAD AGAIN", RATING PAIN "8" ON 0-10 PAIN SCALE, 4 MG ZOFRAN GIVEN PRIOR TO MORPHINE, 2MG MORPHINE GIVEN AT THIS TIME, PT COMPLAINS OF MOUTH BEING DRY, LEMON GLYCERIN SWABS PROVIDED.
--- NOTE | 2019-04-28 23:30 | NUR ---
PT RESTING ON LEFT SIDE, PT REPORTS ABDOMINAL PAIN IMPROVED SOME, STATES "5-6", 2MG MORPHINE GIVEN FOR TOTAL ORDERED DOSE OF 4, BP 99/41, PT DENIES FURTHER NEEDS.
[2019-04-29] VITALS (14 sets, daily range): BP systolic 85–131; BP diastolic 35–77
--- NOTE | 2019-04-29 00:05 | NUR ---
PT STATES " I THINK MY BLOOD SUGAR IS GETTING LOW AGAIN", FSBS 68, 1/2 AMP D50 GIVEN FOR HYPOGLYCEMIC PROTOCOL.
--- NOTE | 2019-04-29 00:50 | NUR ---
PT RESTING QUIETLY REPORTS PAIN IS TOLERABLE, "3-4" ON 0-10 PAIN SCALE, LEMON GLYCERIN SWABS PROVIDED ON REQUEST, PT DENIES NEEDS, SR UP X 2, CALL LIGHT IN REACH, BED IN LOW POSITION.
[2019-04-29 01:46] LABS: CKMB 1.1 U/L (0.0-3.6); CREATINE KINASE 125 UL (21-232); TROPONIN-I < 0.017 ng/mL (0.000-0.060)
--- NOTE | 2019-04-29 02:00 | NUR ---
NO CHANGES IN STATUS AT THIS TIME.
--- NOTE | 2019-04-29 04:30 | NUR ---
FSBS 53, 1 AMP D5O GIVEN, WILL RECHECK IN 30 MINUTES
--- NOTE | 2019-04-29 05:15 | NUR ---
FSBS 86, PT RESTING ON LEFT SIDE EYES CLOSED WILL MONITOR FOR CHANGES.
[2019-04-29 06:17] LABS: BASOPHILS 0.2 % (0-2); EOSINOPHILS 2.7 % (0-7); HEMATOCRIT 38.3 % (42.0-54.0); IMMATURE GRANULOCYTES 0.2 % (0-5); LYMPHOCYTES 47.1 % (15-50); MCH 30.1 pg (26.0-34.0); MCHC 34.2 g/dL (31.0-37.0); MEAN PLATELET VOLUME 11.7 fL (7.4-10.4); MONOCYTES 7.3 % (2-11); NEUTROPHILS 42.5 % (40-80); PLATELET COUNT 268 10x3/uL (130-400); RDW 12.7 % (11.5-14.5)
[2019-04-29 06:19] LABS: HEMOGLOBIN 13.1 g/dL (13.5-17.5); RBC 4.35 10x6/uL (4.20-6.10); WBC 8.9 10x3/uL (4.8-10.8)
[2019-04-29 06:31] LABS: ALKALINE PHOSPHATASE 39 U/L (30-120); BILIRUBIN - TOTAL 1.46 mg/dL (0.2-1.3); CALCIUM 7.7 mg/dL (8.5-10.1); CARBON DIOXIDE 26.5 mmol/L (21.0-32.0); CHLORIDE - SERUM 111 mmol/L (98-107); MAGNESIUM - SERUM 1.8 mg/dL (1.8-2.4); PROTEIN - SERUM 5.3 g/dL (6.4-8.2); SODIUM 143 mmol/L (136-145); UREA NITROGEN 14 mg/dL (7-18)
[2019-04-29 06:32] LABS: CALC OSMOLALITY 283 mosm/kg (275-300); CREATININE - SERUM 0.5 mg/dL (0.6-1.3); GLUCOSE 59 mg/dL (74-106)
[2019-04-29 06:33] LABS: ALBUMIN 2.6 g/dL (3.4-5.0); ALT (SGPT) 32 U/L (10-68); POTASSIUM - SERUM 3.3 mmol/L (3.5-5.1); eGFR NON AFRICAN AMERICAN > 90 mL/min (90-120)
[2019-04-29 06:51] LABS: CKMB 1.2 U/L (0.0-3.6); CREATINE KINASE 127 UL (21-232); TROPONIN-I < 0.017 ng/mL (0.000-0.060)
[2019-04-29 09:29] LABS: CALC OSMOLALITY 285 mosm/kg (275-300); CALCIUM 7.9 mg/dL (8.5-10.1); CARBON DIOXIDE 26.5 mmol/L (21.0-32.0); CHLORIDE - SERUM 109 mmol/L (98-107); CREATININE - SERUM 0.5 mg/dL (0.6-1.3); MAGNESIUM - SERUM 1.7 mg/dL (1.8-2.4); POTASSIUM - SERUM 3.5 mmol/L (3.5-5.1); SODIUM 143 mmol/L (136-145); UREA NITROGEN 13 mg/dL (7-18); eGFR NON AFRICAN AMERICAN > 90 mL/min (90-120)
[2019-04-29 09:33] LABS: GLUCOSE 118 mg/dL (74-106)
[2019-04-29 12:08] LABS: CALC OSMOLALITY 284 mosm/kg (275-300); CALCIUM 7.9 mg/dL (8.5-10.1); CARBON DIOXIDE 29.1 mmol/L (21.0-32.0); CHLORIDE - SERUM 111 mmol/L (98-107); CREATININE - SERUM 0.6 mg/dL (0.6-1.3); GLUCOSE 110 mg/dL (74-106); MAGNESIUM - SERUM 1.7 mg/dL (1.8-2.4); POTASSIUM - SERUM 3.7 mmol/L (3.5-5.1); SODIUM 143 mmol/L (136-145); UREA NITROGEN 11 mg/dL (7-18); eGFR NON AFRICAN AMERICAN > 90 mL/min (90-120)
--- NOTE | 2019-04-29 17:41 | NUR ---
TRANSFERRED TO ROOM 2137 VIA . RECEIVING NURSE AT BEDSIDE.
--- NOTE | 2019-04-29 17:45 | NUR ---
PATIENT RECEIVED TO ROOM 2137 IN STABLE CONDITION. NO DISTRESS. CALL LIGHT WITHIN REACH. DENIES NEEDS AT THIS TIME.
--- NOTE | 2019-04-29 19:14 | NUR ---
DURING REPORT ON BEDSIDE VISIT IT APPEARS THIS PT HAS LEFT THE [facility] PT'S BELONGINGS ARE GONE AND IV HAS BEEN DISCONNECTED AT [facility]UB PT IS NOT TO BE FOUND PT WAS ALERT AND ORIENTED TIMES 4 ACCORDING TO REPORT BUSINESS SUPERVISOR NOTIFIED
--- NOTE | 2019-04-29 19:20 | NUR ---
PT FOUND HE APPEARED BACK AT ROOM WITH FAmily stating he needed to gety his stuff from his truck and complaining that the staff are not meeting any of his requests
--- NOTE | 2019-04-29 19:24 | NUR ---
PT NOW BACK IN BED AND IV X2 CHECKED FOR PATIENCY
[2019-04-30] VITALS: BP 113/56
[2019-04-30 04:00] VITALS: BP 116/68
--- NOTE | 2019-04-30 05:19 | NUR ---
CO LOW GLUCOSE SPOT CHECK IS 64 SNACK AND JUICE PROVIDED
[2019-04-30 06:02] LABS: BASOPHILS 0.2 % (0-2); EOSINOPHILS 2.8 % (0-7); HEMATOCRIT 37.9 % (42.0-54.0); HEMOGLOBIN 12.8 g/dL (13.5-17.5); IMMATURE GRANULOCYTES 0.2 % (0-5); LYMPHOCYTES 36.1 % (15-50); MCH 30.3 pg (26.0-34.0); MCHC 33.8 g/dL (31.0-37.0); MCV 89.6 fL (80.0-100.0); MONOCYTES 8.2 % (2-11); NEUTROPHILS 52.5 % (40-80); RBC 4.23 10x6/uL (4.20-6.10); WBC 9.6 10x3/uL (4.8-10.8)
[2019-04-30 06:09] LABS: ALBUMIN 2.6 g/dL (3.4-5.0); ALKALINE PHOSPHATASE 48 U/L (30-120); ALT (SGPT) 30 U/L (10-68); BILIRUBIN - TOTAL 0.94 mg/dL (0.2-1.3); CALC OSMOLALITY 283 mosm/kg (275-300); CALCIUM 8.1 mg/dL (8.5-10.1); CHLORIDE - SERUM 110 mmol/L (98-107); CREATININE - SERUM 0.5 mg/dL (0.6-1.3); GLUCOSE 67 mg/dL (74-106); MAGNESIUM - SERUM 1.7 mg/dL (1.8-2.4); POTASSIUM - SERUM 3.3 mmol/L (3.5-5.1); PROTEIN - SERUM 5.1 g/dL (6.4-8.2); SODIUM 144 mmol/L (136-145); UREA NITROGEN 10 mg/dL (7-18); eGFR NON AFRICAN AMERICAN > 90 mL/min (90-120)
[2019-04-30 07:01] LABS: PLATELET COUNT 194 10x3/uL (130-400)
[2019-04-30 08:03] VITALS: BP 123/62
--- NOTE | 2019-04-30 11:48 | MORECARE ---
CASE MANAGEMENT DISCHARGE SUMMARY PATIENT: GAVIOTA COFFEY UNIT: [id number] ADM DATE: 04/28/19 AGE: 33 : [birth year] SEX: M ROOM/BED: D.2137 AUTHOR: ABDULLAHI POWELL PHYSICIAN: REFERRING PHYSICIAN: DRE JARA MD DATE OF SERVICE: 04/30/19 Discharge Plan Patient Name: GAVIOTA COFFEY [facility] : 1985 Planned Disposition: Home or Self Care Anticipated Discharge Date: Discharge Date: Expected LOS: Initial Reviewer: [email or web address] Initial Review Date: 04/30/2019 Generated: 04/30/19 12:48 pm DCPIA - Discharge Planning Initial Assessment Updated by [email or web address]: Concepcion Gomez on 04/30/19 11:43 am * Is the patient Alert and Oriented? Yes * How many steps to enter\exit or inside your home? 0/0 * PCP Adri * [facility] * Preadmission Environment Home with Family * ADLs Independent * Equipment Glucometer * List name and contact numbers for known caregivers / representatives who currently or will assist patient after discharge: Colby [phone] * Verbal permission to speak to the caregivers and representatives has been obtained from the patient. Yes * Community resources currently utilized None * Please name any agencies selected above. Uses [facility] for diabetic supplies * Additional services required to return to the preadmission environment? No * Can the patient safely return to the preadmission environment? Yes * Has this patient been hospitalized within the prior 30 days at any hospital? No Patient Name: GAVIOTA COFFEY Page 46705 at 1148 All edits/amendments must be made on the electronic document DICTATION DATE: 04/30/19 1148 LICENSED LAND SURVEYOR: INDIA 04/30/19 1148 RPT#: [id number] DC DATE: STATUS: ADM IN [facility] [address] [place] [address] END OF REPORT
--- NOTE | 2019-04-30 11:56 | MORECARE ---
CASE MANAGEMENT DISCHARGE SUMMARY PATIENT: GAVIOTA COFFEY UNIT: [id number] ADM DATE: 04/28/19 AGE: 33 : [birth year] SEX: M ROOM/BED: D.2137 AUTHOR: SHERRY,DOC PHYSICIAN: REFERRING PHYSICIAN: DRE JARA MD DATE OF SERVICE: 04/30/19 Discharge Plan Patient Name: GAVIOTA COFFEY Facility: [facility]:[place] : 1985 Planned Disposition: Home or Self Care Anticipated Discharge Date: Discharge Date: Expected LOS: Initial Reviewer: [email or web address] Initial Review Date: 04/30/2019 Generated: 04/30/19 12:55 pm Comments DCP- Discharge Planning Updated by [email or web address]: Concepcion Gomez on 04/30/19 10:[address] Patient Name: GAVIOTA COFFEY Admission Status: ER Accout number: [id number] Admission Date: 04-28-2019 : 1985 Admission Diagnosis: Attending: DRE JARA Current LOS: 2 Anticipated DC Date: Planned Disposition: Home or Self Care Primary Insurance: MEDICAID [place] Discharge Planning Comments: CM met with patient to complete initial dc planning assessment. CM educated patient on the CM role and verbal consent given by patient to complete assessment. CM verified patient's address, phone number, and emergency contact phone numbers. Patient lives at home with family. At discharge patient plans to return home and feels this is a safe discharge. Patient denied known discharge needs at this time. The patient states he will transport himself home. CM will continue to follow and will assist as needed with dc plans/needs. Air Cargo Specialist Supervisor: Concepcion Gomez MSN, CM DCPIA - Discharge Planning Initial Assessment Updated by [email or web address]: Concepcion Gomez on 04/30/19 11:43 am * Is the patient Alert and Oriented? Yes * How many steps to enter\exit or inside your home? 0/0 * PCP Adri * [facility] * Preadmission Environment Home with Family * ADLs Independent * Equipment Glucometer * List name and contact numbers for known caregivers / representatives who currently or will assist patient after discharge: Colby [phone] * Verbal permission to speak to the caregivers and representatives has been obtained from the patient. Yes * Community resources currently utilized None * Please name any agencies selected above. Uses [facility] for diabetic supplies * Additional services required to return to the preadmission environment? No * Can the patient safely return to the preadmission environment? Yes * Has this patient been hospitalized within the prior 30 days at any hospital? No Last DP export: 04/30/19 10:48 a Patient Name: GAVIOTA COFFEY Page 33653 at 1156 All edits/amendments must be made on the electronic document DICTATION DATE: 04/30/19 1155 LANDSCAPE CREW MEMBER: INDIA 04/30/19 1155 RPT#: [id number] DC DATE: STATUS: ADM IN [facility] [address] [place] [address] END OF REPORT
[2019-04-30 12:04] VITALS: BP 118/74
[2019-04-30 14:57] VITALS: BP 108/72
[2019-04-30] MEDS ORDERED: CLEOCIN HCL300 MG PO (15:06)
[2019-04-30 15:35] VITALS: Ht 188 cm; Wt 78.5 kg
--- NOTE | 2019-04-30 16:22 | NUR ---
PT STATES TO ME HE IS NOT GONNA LEAVE UNTIL HE SPEAKS WITH THE DOCTOR ABOUT THE STOMACH PAIN HE HAS BEEN HAVING. I VERBALIZED UNDERSTANDING. I CALLED AND SPOKE WITH DR. JARA ABOUT WHAT PT SAID AND HE STATES HE WILL COEM AND SEE HIM SHORTLY. I VERBALIZED UNDERSTANDING.
[2019-04-30] MEDS ORDERED: CARAFATE1 G PO (16:28)
[2019-04-30] MEDS ORDERED: PROTONIX40 MG PO (16:28)
--- NOTE | 2019-04-30 17:23 | NUR ---
DR. JARA CAME AND SEEN PT. PT STILL DISCHARGED. LEFT AC IV DC'D WITH CATH INTACT. RIGHT FA IV DC'D WITH CATH INTACT. PT STATES HE DOES NOT USE [facility] AND THAT HE USES [facility] IN [place]. CALLED [facility] AND THEY STATED THEY WOULD CALL [facility] AND GET PT'S MEDS SENT TO THEM. I VERBALIZED UNDERSTANDING. SPOKE WITH PT AND STATED TO HIM THE MEDS WILL BE AT [facility] IN [place] HE VERBALIZED UNDERSTANDING. DISCHARGE INSTUCTIONS GIVEN TO PT AND TEACHING DONE. PT HAS NO FURTHER QUESTIONS. CHART COPY SIGNED. PT TAKEN DOWN VIA WC BY CRISTA.
--- NOTE | 2019-05-01 08:22 | MORECARE ---
CASE MANAGEMENT DISCHARGE SUMMARY PATIENT: GAVIOTA COFFEY UNIT: [id number] ADM DATE: 04/28/19 AGE: 33 : 89 SEX: M ROOM/BED: D.2137 AUTHOR: SHERRY,DOC PHYSICIAN: REFERRING PHYSICIAN: DRE JARA MD DATE OF SERVICE: 05/01/19 Discharge Plan Patient Name: GAVIOTA COFFEY Facility: [facility]:[place] : 1985 Planned Disposition: Home or Self Care Anticipated Discharge Date: 04/30/19 Discharge Date: 04/30/2019 Expected LOS: 2 Initial Reviewer: [email or web address] Initial Review Date: 04/30/2019 Generated: 05/01/19 9:21 am DCP- Discharge Planning Updated by [email or web address]: Concepcion Gomez on 04/30/19 10:[address] Patient Name: GAVIOTA COFFEY Admission Status: ER Accout number: [id number] Admission Date: 04-28-2019 : 1985 Admission Diagnosis: Attending: DRE JARA Current LOS: 2 Anticipated DC Date: Planned Disposition: Home or Self Care Primary Insurance: MEDICAID [place]END[place] Discharge Planning Comments: CM met with patient to complete initial dc planning assessment. CM educated patient on the CM role and verbal consent given by patient to complete assessment. CM verified patient's address, phone number, and emergency contact phone numbers. Patient lives at home with family. At discharge patient plans to return home and feels this is a safe discharge. Patient denied known discharge needs at this time. The patient states he will transport himself home. CM will continue to follow and will assist as needed with dc plans/needs. Sustainable Products Marketing Manager: Concepcion VEGA, CM DCPIA - Discharge Planning Initial Assessment Updated by [email or web address]: Concepcion Gomez on 04/30/19 11:43 am * Is the patient Alert and Oriented? Yes * How many steps to enter\exit or inside your home? 0/0 * PCP Adri * [facility] * Preadmission Environment Home with Family * ADLs Independent * Equipment Glucometer * List name and contact numbers for known caregivers / representatives who currently or will assist patient after discharge: Colby [phone] * Verbal permission to speak to the caregivers and representatives has been obtained from the patient. Yes * Community resources currently utilized None * Please name any agencies selected above. Uses [facility] for diabetic supplies * Additional services required to return to the preadmission environment? No * Can the patient safely return to the preadmission environment? Yes * Has this patient been hospitalized within the prior 30 days at any hospital? No Last DP export: 04/30/19 10:56 a Patient Name: GAVIOTA COFFEY Page 13021 at 0822 All edits/amendments must be made on the electronic document DICTATION DATE: 05/01/19820 APPLICATION SECURITY ENGINEER: INDIA 05/01/19820 RPT#: [id number] DC DATE:04/30/19 STATUS: DIS IN [facility] [address] [place] [address] END OF REPORT
--- NOTE | 2019-05-01 08:29 | MORECARE ---
CASE MANAGEMENT DISCHARGE SUMMARY PATIENT: GAVIOTA COFFEY UNIT: [id number] ADM DATE: 04/28/19 AGE: 33 : 89 SEX: M ROOM/BED: D.2137 AUTHOR: SHERRY,DOC PHYSICIAN: REFERRING PHYSICIAN: DRE JARA MD DATE OF SERVICE: 05/01/19 Discharge Plan Patient Name: GAVIOTA COFFEY Facility: [facility]:[place] : 1985 Planned Disposition: Home or Self Care Anticipated Discharge Date: 04/30/19 Discharge Date: 04/30/2019 Expected LOS: 2 Initial Reviewer: [email or web address] Initial Review Date: 04/30/2019 Generated: 05/01/19 9:29 am DCP- Discharge Planning Updated by [email or web address]: Concepcion Gomez on 04/30/19 10:[address] Patient Name: GAVIOTA COFFEY Admission Status: ER Accout number: [id number] Admission Date: 04-28-2019 : 1985 Admission Diagnosis: Attending: DRE JARA Current LOS: 2 Anticipated DC Date: Planned Disposition: Home or Self Care Primary Insurance: MEDICAID [place] PENDING Discharge Planning Comments: CM met with patient to complete initial dc planning assessment. CM educated patient on the CM role and verbal consent given by patient to complete assessment. CM verified patient's address, phone number, and emergency contact phone numbers. Patient lives at home with family. At discharge patient plans to return home and feels this is a safe discharge. Patient denied known discharge needs at this time. The patient states he will transport himself home. CM will continue to follow and will assist as needed with dc plans/needs. [employer]ident Responder: Concepcion VEGA, CM DCPIA - Discharge Planning Initial Assessment Updated by [email or web address]: Concepcion Gomez on 04/30/19 11:43 am * Is the patient Alert and Oriented? Yes * How many steps to enter\exit or inside your home? 0/0 * PCP Adri * [facility] * Preadmission Environment Home with Family * ADLs Independent * Equipment Glucometer * List name and contact numbers for known caregivers / representatives who currently or will assist patient after discharge: Col[place] [phone] * Verbal permission to speak to the caregivers and representatives has been obtained from the patient. Yes * Community resources currently utilized None * Please name any agencies selected above. Uses [employer] for diabetic supplies * Additional services required to return to the preadmission environment? No * Can the patient safely return to the preadmission environment? Yes * Has this patient been hospitalized within the prior 30 days at any hospital? No Last DP export: 05/01/19 7:22 a Patient Name: GAVIOTA COFFEY Page [id number] at 0829 All edits/amendments must be made on the electronic document DICTATION DATE: 05/01/19828 INFORMATION TECHNOLOGY INTERN: INDIA 05/01/19828 RPT#: [id number] DC DATE:04/30/19 STATUS: DIS IN [facility] [address] [place] [address] END OF REPORT
== END 2019-04-30 17:26 | disposition home or self-care (01) | DRG 638 ==
LOC: D.ER 13:56 → D.CVICU 18:54 → D.M2 18:54
PROVIDERS: Family Medicine; ADMIT Internal Medicine Nephrology; ATTEND Internal Medicine Nephrology
DX: E11.10 Type 2 diabetes mellitus with ketoacidosis without coma (principal); E87.1 Hypo-osmolality and hyponatremia; L03.213 Periorbital cellulitis; E11.65 Type 2 diabetes mellitus with hyperglycemia; D64.9 Anemia, unspecified; K04.7 Periapical abscess without sinus